=== PATIENT | female | born 1995 | race Caucasian/White ===

== ENCOUNTER 2017-01-22 11:45 | Outpatient (CLI) | payer OTHER | END 2017-01-22 11:46 | disposition home or self-care (01) | DX: Z36 Encounter for antenatal screening of mother (principal) ==

== ENCOUNTER 2017-04-29 07:45 | Outpatient (CLI) | payer OTHER ==
--- NOTE | 2017-04-29 14:44 | Ultrasound Report ---
OBSTETRICAL ULTRASOUND SECOND TRIMESTER FOR EVALUATION OF ANATOMY: 2016 CLINICAL HISTORY: REGIS per doctor's office is 08/24/2017. TECHNIQUE: Real-time scanning was performed with front desk representative static images obtained. LAST MENSTRUAL PERIOD --- Clinical Age --- US Age 22 weeks 5 days EFW Hadlock 555 g EFW% Hadlock --- Heart Rate 150 bpm EDC --- US EDC 08/28/2017 BPD [place] 22 weeks 1 day; Mean mm 53.2 HC [place] 22 weeks 3 days; Mean 203.5 AC [place] 23 weeks 0 days; Mean mm 181.7 FL [place]lock 23 weeks 2 days; Mean mm 40.9 Presentation breech Placental Location anterior Cervical Length 4.0 cm Amniotic Fluid 4.2 cm FINDINGS: A single fetus is noted in breech position. Composite gestational age by ultrasound today is 22.7 weeks. EDC by ultrasound today 08/28. Present gestational age is only 4 days less advanced than expected as compared to expected REGIS reported by doctor's office. This degree of growth is within normal limits. Estimated weight is 555 grams. heart rate is 150 beats per minute and regular. anatomy is within normal limits including head, body, spine, four-chamber view of the heart, cardiac outflow tract, bladder. face appears normal with normal ossification of the nasal bones. lips/ face appears normal. Normal three-vessel umbilical cord is noted. Umbilical cord insertion site in the fetus appears normal. Anterior placenta is noted. Umbilical cord insertion site within the placenta lies within the central aspect of the placenta. Insertion site is normal. Examination is negative for placenta previa. Amniotic fluid volume index is 12.0 cm. Largest pocket of amniotic fluid is 4.2. Amniotic fluid volume index is normal. Maternal cervix measures 4 cm in length. This is within normal limits. Estimated weight today is 555 grams. IMPRESSION: 1. SINGLE FETUS IS NOTED IN BREECH POSITION WITH COMPOSITE GESTATIONAL AGE TODAY BY ULTRASOUND OF 22.7 WEEKS. EDC BY TODAY'S ULTRASOUND IS 08/28/2017. THIS IS 4 DAYS LESS ADVANCED THAN EXPECTED CALCULATED FROM AN EARLIER ULTRASOUND DONE AT PATIENT'S PHYSICIAN'S OFFICE. GROWTH IS WITHIN NORMAL LIMITS. 2. ANATOMY IS WITHIN NORMAL LIMITS. 3. NORMAL ANTERIOR PLACENTA. 4. NORMAL AMNIOTIC FLUID VOLUME INDEX OF 12.0. MTDD
== END 2017-04-29 07:46 | disposition home or self-care (01) ==
LOC: DI 07:45
PROVIDERS: ATTEND Nurse Practitioner Obstetrics & Gynecology
DX: Z36 Encounter for antenatal screening of mother (principal)
CPT/HCPCS: 76811

== ENCOUNTER 2017-05-21 12:59 | Outpatient (CLI) | payer OTHER | END 2017-05-21 13:00 | disposition home or self-care (01) | LOC: LAB.F 12:59 | PROVIDERS: ATTEND Nurse Practitioner Obstetrics & Gynecology | DX: Z36 Encounter for antenatal screening of mother (principal) | CPT/HCPCS: 36415; 82950; 85018; 86850 ==

== ENCOUNTER 2017-07-26 17:49 | Outpatient (CLI) | payer OTHER ==
[2017-07-26 18:02] VITALS: BP 119/74
== END 2017-07-26 18:25 | disposition home or self-care (01) ==
LOC: WFO 17:49 → FBP 17:51 → WFO 18:25
PROVIDERS: ATTEND Registered Nurse
DX: O26.899 Other specified pregnancy related conditions, unspecified trimester (principal); N89.8 Other specified noninflammatory disorders of vagina; Z3A.00 Weeks of gestation of pregnancy not specified
CPT/HCPCS: 99214

== ENCOUNTER 2017-08-04 08:00 | Outpatient (CLI) | payer OTHER | END 2017-08-04 08:01 | LOC: LAB.R 08:00 | PROVIDERS: ATTEND Registered Nurse | DX: Z34.83 Encounter for supervision of other normal pregnancy, third trimester (principal) | CPT/HCPCS: 87081 ==

== ENCOUNTER 2017-08-28 19:55 | Inpatient (IN) | payer OTHER ==
[2017-08-28] MEDS ORDERED: ONDANSETRON 4 MG/2 ML VIAL IVP PRN ×2 (20:24→22:32)
[2017-08-28] MEDS ORDERED: OXYTOCIN/SODIUM CHLORIDE 250 ML IV ONE (20:24)
[2017-08-28] MEDS ORDERED: PENICILLIN G POTASSIUM 5,000,000 UNIT in SODIUM CHLORIDE 0.9% MINIBAG 100 ML IV SCH (20:24)
[2017-08-28] MEDS ORDERED: fentaNYL 100 MCG/2 ML VIAL IVP PRN (20:24)
[2017-08-28] MEDS ORDERED: SODIUM CHLORIDE FLUSH 0.9% 10 ML SYRINGE IVP PRN (20:24)
--- NOTE | 2017-08-28 20:29 | HISTORY & PHYSICAL EXAMINATION ---
Admit History - Instructions [place]/Slash: -Left hand click circles element as positive or present. -Right hand click slashes element as negative or not present. - Visit Reason Visit Reason: Contractions (contractions with onset around 1800, progressively intense over a period of 2 hours, now breathing through them. No LOF. No vaginal bleeding. Good FM.) - : 2 Parity: 1 Premature: 0 Ectopic: 0 : 0 Care: positive: [facility] Risk/History: positive: None Complications This : positive: Other (GBS positive RV culture @ 36 weeks' gestation) Smoking Status: Never smoker - Mother's Labs Mother's Blood Type: positive: AB Mother's RH: positive: Positive GBS: positive: Group B Strep Positive Rubella Status: positive: Immune (Jadyn Hayes is a 22 y/o who presented for care at 8 weeks' gestation w/ a planned . She was dated by her LMP, which was consistent w/ her 1st trimester US. She received consistent care throughout her , without complication, and had a total of 14 visits. She gained 35 pounds during her .) Meds/Allgy - Home Medications Home Medications: Ambulatory Orders Medication Instructions Recorded Confirmed Ondansetron Odt [Zofran] 4 mg TL Q6H PRN #10 tablet 03/12/16 - Allergies Allergies/Adverse Reactions: Allergies Allergy/AdvReac Type Severity Reaction Status Date / Time No Known Drug Allergies Allergy Verified 03/12/16 11:55 Physical - Abdominal Exam Vital Signs: Temp Pulse Resp BP Pulse Ox 36.9 C 96 22 112/68 100 08/28/17 20:14 08/28/17 20:14 08/28/17 20:14 08/28/17 20:14 08/28/17 20:14 Contraction Frequency (min/apart): q 3-4 minutes x 90 seconds Contraction Intensity: positive: Strong Uterine Resting Tone: positive: Soft - Monitoring Heart Rate Baseline: 160 Strip Review: positive: Category I - Presentation Presentation: positive: Vertex - Vaginal Exam Membranes: positive: Membranes intact (BBOW) Dilation (in cm): 6 Effacement (%): 90 Station: positive: 1 Cervical Position: positive: Anterior - Speculum Exam Speculum Exam Performed: positive: No - Other Notes Labor Progress Note/Additional Text: HPI: Jadyn presented in spontaneous active labor w/ onset of uterine contractions at 1800, progressively intense since that time. No LOF/VB. +FM. Desiring IV analgesia & hydrotherapy @ this time. Potentially interested in epidural placement as labor progresses. She is accompanied by her partner, Car, and her mother, both of whom are very involved & supportive. She is expecting a female , whom she has named "ROSENDO" ROS: GEN: no fever, no chills HEENT: no ROGER, no vision changes LUNGS: no SOB, no cough HEART: no palpitations, no CP GI: no N/V/D : no dysuria, no remarkable vaginal d/c OB: + Uterine contractions, 6/10 pain, no LOF/VB, +FM MS: Mild back pain, otherwise no pain, FROM SKIN:No pruritus, no lesion NEURO: No numbness, tingling, weakness PSYCH: Moderate anxiety, discomfort w/ contractions PE: GEN:AAOx3, uncomfortable, mildly panicky gravid female HEENT: grossly normocephalic, atraumatic, PERRLA LUNGS: CTA b/l t/o HEART: RRR nls1s2, no murmur GI: Abd gravid, NT, palpable movement, palpable strong contractions; lie longitudinal, presentation cephalic, EFW 7-7.5# : SVE: 6/+1 BBOW, anterior, soft; mucoid vaginal d/c, no lesions OB: EFM: BL 160bpm, +accels, no decels, mod variability; TOCO: UCs q 3-4 minutes x90 seconds, palpably strong MS: FROM t/o, no edema, no erythema SKIN: C/D/I, warm, well-perfused w/o lesion, +multiple tattoos NEURO: no focal deficit PSYCH: moderate anxiety Assessment: 22 y/o @ 40w5d in active, spontaneous labor @ term, IBOW, GBS +, FHTs cat I, adequate pain control @ present w/ desire for hydrotherapy Plan for Labor - Plan For Labor : expectant Plan for Labor: 1. Admit to [facility] 2. IV insertion & begin IV PCN for GBS prophylaxis per protocol 3. IV fentanyl 100mcg hourly PRN per pt request; hydrotherapy prior or 1-2 hours after, reviewed; reviewed all methods of pain management w/ pt, including timing of epidural & anticipatory guidance, should she elect anesthesia 4. Intermittent auscultation acceptable if she has not received fentanyl, CEFM if she receives opioid analgesia 5. Reassess cervical status x4 hours, earlier PRN 6. Reviewed optimal maternal positioning 7. Reviewed physiology of labor 8. Reviewed plan of care w/ pt, partner, pt's mother & RN @ bedside; all in agreement, without concerns--Dr. Mathew, DO, aware of clinical scenario
[2017-08-28] MEDS ORDERED: LACTATED RINGERS 1,000 ML IV ONE (20:39)
[2017-08-28] MEDS: LACTATED RINGERS 1,000 ML IV SCH ×2 (20:40→23:59)
[2017-08-28] MEDS ORDERED: ACETAMINOPHEN 325 MG TABLET PO SCH (21:00)
[2017-08-28 21:13] LABS: BASOPHILS % (AUTO) 0.5 %; EOSINOPHILS % (AUTO) 0.2 %; HCT - HEMATOCRIT 35.2 % (37.0-47.0); LYMPHOCYTES # (AUTO) 1.3 10^3/uL (1.5-3.5); LYMPHOCYTES % (AUTO) 16.7 %; MEAN CORPUSCULAR HEMOGLOBIN 28.7 pg (27.0-31.0); MEAN CORPUSCULAR HGB CONC 34.2 g/dL (32.0-36.0); MEAN PLATELET VOLUME 10.5 fL (7.9-10.8); MONOCYTES # (AUTO) 0.8 10^3/uL (0.0-1.0); MONOCYTES % (AUTO) 10.1 %; NEUTROPHILS # (AUTO) 5.7 10^3/uL (1.5-6.6); NEUTROPHILS % (AUTO) 72.5 %; RED CELL DISTRIBUTION WIDTH 13.1 % (12.0-15.0); UNCORRECTED WHITE BLOOD COUNT 7.8 x10^3/uL; WHITE BLOOD COUNT 7.8 x10^3/uL (4.8-10.8)
[2017-08-28] MEDS ORDERED: fent/BUPIV 2 MCG/0.125% 250 ML EP ONE (21:40)
--- NOTE | 2017-08-28 21:45 | PROVIDER PROGRESS NOTE ---
Labor Progress Note - Uterine Monitoring Uterine Monitoring Mode: positive: External toco Contraction Frequency (min/apart): 2-3 x80-90 seconds Contraction Intensity: positive: Strong Uterine Resting Tone: positive: Soft - Monitoring Monitor Mode: positive: External ultrasound Heart Rate Baseline: 150 Heart Rate Variability: positive: Moderate (6-25 bmp) Accelerations: positive: Present, 15x15 Decelerations: positive: None Strip Review: positive: Category I - Labor Progress Note Labor Progress Note/Additional Text: S: Pt s/p fentanyl 50mcg IVP, reports decreased discomfort from 10/10 to 6-7/10 w/ uterine contractions, desires epidural placement. Mother & partner present @ the bedside, involved & very supportive. O: VS: HR 98 BP 112/68 RR 20 EFM BL 150bpm + accels, no decels, mod variability TOCO: UCs q2-3 min x80-90 seconds, palpably strong SVE: deferred secondary to no clinical indication A: 22 y/o @ 40w5d by first trimester US c/w LMP in spontaneous active labor GBS positive s/p 1 dose IV PCN for prophylaxis FHTs cat I Inadequate pain control w/ desire for anesthesia P: 1. Epidural placement now 2. Continue GBS prophylaxis w/ IV PCN per protocol 3. Reassess cervical status w/ clinical indication 4. Anticipate
[2017-08-28] MEDS ORDERED: METOCLOPRAMIDE 10 MG/2 ML VIAL IVP PRN (22:32)
[2017-08-28] MEDS ORDERED: ePHEDrine 50 MG/ML VIAL IVP PRN (22:32)
[2017-08-28] MEDS ORDERED: NALOXONE 0.4 MG/ML VIAL IVP PRN (22:32)
[2017-08-28] MEDS ORDERED: NALBUPHINE 20 MG/ML AMP IVP PRN (22:32)
[2017-08-28] MEDS ORDERED: fent/BUPIV 2 MCG/0.125% 250 ML EP PRN (22:32)
[2017-08-28] MEDS ORDERED: LACTATED RINGERS 500 ML IV SCH (22:32)
[2017-08-28] MEDS ORDERED: diphenhydrAMINE INJ 50 MG/ML VIAL IVP PRN (22:32)
[2017-08-29] MEDS ORDERED: PENICILLIN G POTASSIUM 2,500,000 UNIT in SODIUM CHLORIDE 0.9% 100ML 100 ML IV SCH (01:00)
[2017-08-29] MEDS ORDERED: HYDROCORTISONE/PRAMOXINE 10 GM PR PRN (01:11)
[2017-08-29] MEDS ORDERED: WITCH HAZEL/GLYCERIN 1 EACH MED..PAD TOP PRN (01:11)
[2017-08-29] MEDS ORDERED: HYDROCORTISONE 1% CREAM 28 GM TUBE PR PRN (01:11)
[2017-08-29] MEDS ORDERED: MAGNESIUM HYDROXIDE 2,400 MG/30 ML UDC PO PRN (01:11)
[2017-08-29] MEDS ORDERED: OXYTOCIN/SODIUM CHLORIDE 250 ML IV ONE (01:11)
--- NOTE | 2017-08-29 01:23 | DELIVERY NOTE ---
Delivery Note - Labor Labor: positive: Spontaneous - Delivery Method Delivery Method: positive: Spontaneous vaginal delivery - Presentation Presentation: positive: Vertex, ASHLEY - left occiput anterior - Nuchal Cord Nuchal Cord: positive: Present (tight, x1, delivered through) - Anesthetic Anesthetic Type: - Amniotic Fluid Description Amniotic Fluid Description: positive: Clear (SROM for CAF @ 0058 w/ pushing) - Episiotomy Type Episiotomy Type: positive: None - Laceration Laceration: positive: None - Delivery Outcome Delivery Outcome: positive: Livebirth - [place] : positive: Placed in direct skin contact with mother, Stimulated, Warmed , [place] used [place] sex: positive: Female - Cord Cord: positive: 3 vessels - Placenta Placenta: positive: Intact, Spontaneous ([place]) - Estimated Blood Loss Estimated Blood Loss (in cc): 150 - Post Delivery Events Post Delivery Events: positive: No post delivery events - Delivery Comments (Free Text/Narrative) Delivery Comments (Free Text/Narrative): Jadyn Hayes is a 22 y/o [id number] who presented for care in the early 1st trimester & was dated by a concordant 8week ultrasound. She received care regularly & her care was complicated only by GBS + status @ 36-week screening. She began hilario 08/28/2017 @ 1830 & presented to [facility] @ 2030 in spontaneous, active labor @ 40w5d gestation. Jadyn received a single dose of 5,000million units of PCN @ 2100 for GBS prophylaxis. She received fentanyl x1 @ 2118 for discomfort & subsequently received an epidural for anesthesia ( placed @ 5). FHTs were monitored t/o the first stage & were consistently category I. She reported increased persistent pressure s/p straight cath for 800mL clear yellow urine & was found to be complete 08/29/2017 @ 0050, for a total 1st stage duration of 6hours, 20 minutes. She pushed w/ spontaneous urge & experienced SROM for moderate amt CAF @ 0058 w/ expulsive efforts, then subsequently delivered a viable female vaginally over @ intact perineum @ 0059, for a total 2nd stage duration of 9 minutes, 4 of which were spent actively pushing. Tight nuchal cord x1, delivered readily through. Vigorous w/ spontaneous, lusty cry. Placed to maternal abdomen for drying/stim. Delayed cord clamping until cessation of pulsation, then cord clamped x2 by CNM, cut by FOB. 3VC noted, cord blood obtained. Active management of the 3rd stage w/ Pitocin in IV fluids. Placenta delivered spontaneously & intact, [place], w/ trailing membranes that were easily teased free w/ ring forceps @ 0105, for a total 3rd stage duration of 6 minutes. Fundus firm @ U. Vagina & perineum inspected & found to be intact. EBL 150mL. Infant @ breast, nuzzling & rooting w/in 15 minutes of delivery. Mother intends to breastfeed exclusively & has had a previously successful experience. Family present @ the bedside, involved & very supportive. Mother & stable.
[2017-08-29] MEDS: IBUPROFEN 800 MG TABLET PO SCH ×4 (02:07→20:41)
[2017-08-29] MEDS: DOCUSATE SODIUM 100 MG CAPSULE PO SCH ×2 (09:05→20:41)
--- NOTE | 2017-08-29 18:38 | PROVIDER PROGRESS NOTE ---
Subjective - Prog Note Date Prog Note Date: 08/29/17 Prog Note Time: 18:30 - Subjective Pt reports feeling: Improved (Jadyn is doing well. She reports increased discomfort w/ uterine contractions w/ nursing & requests additional analgesia. She is nursing well w/ excellent latch. She reports minimal lochia rubra. She is ambulating & voiding w/o difficulty. She is tolerating po intake. She is hoping to remain until PPD#2.) Objective - Vital Signs/Intake & Output Vital Signs: Vital Signs x48h Temp Pulse Resp BP Pulse Ox 08/29/17 17:20 36.8 C 70 16 102/61 100 08/29/17 12:14 36.4 C L 78 18 105/62 100 Intake & Output: Intake & Output 08/26/17 08/27/17 08/28/17 08/29/17 23:59 23:59 23:59 23:59 Intake Total 1080 1250 Output Total 1800 Balance 1080 -550 - Objective General Appearance: positive: No acute distress, Alert Eyes Bilateral: positive: Normal inspection, PERRL, EOMI ENT: positive: ENT inspection nml Respiratory: positive: Chest non-tender, No respiratory distress, Breath sounds nml Cardiovascular: positive: Regular rate & rhythm, No murmur, No gallop Abdomen: positive: Non-tender, No organomegaly, No distention, Other (FF U-1) Skin: positive: Color nml, No rash, Warm, Dry Extremities: positive: Non-tender, Full ROM, Nml appearance, No pedal edema. negative: Calf tenderness, Vilma's sign/cords Neurologic/Psychiatric: positive: Oriented x3, CN's nml (2-12), Motor nml, Sensation nml, Mood/affect nml Comments/Other: Breasts b/l s, nt; nipples b/l intact & everted; colostrum readily expressed Perineum intact w/o ecchymosis/erythema/edema; minimal lochia rubra - Lab Results Fish Bones: 08/28/17 20:50 Other Labs: Lab Results x24hrs 08/28/17 Range/Units 20:50 WBC 7.8 (4.8-10.8) x10^3/uL RBC 4.20 (4.20-5.40) 10^6/uL Hgb 12.0 (12.0-16.0) g/dL Hct 35.2 L (37.0-47.0) % MCV 84.0 (81.0-99.0) fL MCH 28.7 (27.0-31.0) pg MCHC 34.2 (32.0-36.0) g/dL RDW 13.1 (12.0-15.0) % Plt Count 139 (130-450) 10^3/uL MPV 10.5 (7.9-10.8) fL Neut # 5.7 (1.5-6.6) 10^3/uL Lymph # 1.3 L (1.5-3.5) 10^3/uL [place] # 0.8 (0.0-1.0) 10^3/uL Eos # 0.0 (0.0-0.7) 10^3/uL Baso # 0.0 (0.0-0.1) 10^3/uL Absolute Nucleated RBC 0.00 x10^3/uL Nucleated RBC % 0.0 /100WBC Assessment/Plan - Problem List (1) (normal spontaneous vaginal delivery) Impression: PPD#0 s/p w/o laceration Inadequate pain control w/ non-opioid analgesia well Normal uterine involution P: 1. add 5mg oxycodone q 4hrs PRN severe pain 2. Reviewed appropriate use of opioid analgesia 3. support provided & to continue in ongoing fashion 4. Continue routine care 5. Anticipate d/c PPD#2
[2017-08-29] MEDS: oxyCODONE 5 MG TABLET PO PRN (18:46)
[2017-08-30] MEDS: IBUPROFEN 800 MG TABLET PO SCH ×4 (04:16→22:55)
[2017-08-30] MEDS: DOCUSATE SODIUM 100 MG CAPSULE PO SCH ×2 (08:27→22:55)
[2017-08-30] MEDS: SODIUM CHLORIDE FLUSH 0.9% 10 ML SYRINGE IVP SCH ×3 (08:42→08:44)
[2017-08-30] MEDS: LACTATED RINGERS 1,000 ML IV SCH ×3 (08:43→08:45)
[2017-08-30] MEDS: oxyCODONE 5 MG TABLET PO PRN (17:23)
--- NOTE | 2017-08-30 17:26 | PROVIDER PROGRESS NOTE ---
Subjective - Prog Note Date Prog Note Date: 08/30/17 Prog Note Time: 17:00 - Subjective Pt reports feeling: Improved Subjective: Jadyn is doing well, although she is very tired. Her infant clusterfed for most of the night & she did not get much sleep. is going well & she denies pain apart from uterine cramping w/ nursing. She has minimal lochia rubra. She is ambulating & voiding w/o difficulty & is tolerating po intake. She is undecided regarding pp contraception & will not be returning to work. Her family & partner are present @ the bedside & are involved & very supportive. she expresses interest in taking a bath. Objective - Vital Signs/Intake & Output Reviewed Vital Signs: Yes Vital Signs: Vital Signs x48h Temp Pulse Resp BP Pulse Ox 08/30/17 16:07 36.6 C 85 16 100/52 L 99 Intake & Output: Intake & Output 08/27/17 08/28/17 08/29/17 08/30/17 23:59 23:59 23:59 23:59 Intake Total 1080 2250 Output Total 1800 Balance 1080 450 - Objective General Appearance: positive: No acute distress, Alert Eyes Bilateral: positive: Normal inspection, PERRL, EOMI ENT: positive: ENT inspection nml Respiratory: positive: Chest non-tender, No respiratory distress, Breath sounds nml Cardiovascular: positive: Regular rate & rhythm, No murmur, No gallop Abdomen: positive: Non-tender, No organomegaly, Nml bowel sounds, Other (FFU-2) Skin: positive: Color nml, No rash, Warm, Dry Extremities: positive: Non-tender, Full ROM, Nml appearance, No pedal edema. negative: Calf tenderness, Vilma's sign/cords Neurologic/Psychiatric: positive: Oriented x3, CN's nml (2-12), Motor nml, Sensation nml, Mood/affect nml Comments/Other: breasts b/l s, nt; nipples b/l intact & everted, colostrum readily expressed perineum intact, no erythema/edema/ecchymosis; minimal lochia rubra - Lab Results Fish Bones: 08/28/17 20:50 Assessment/Plan - Problem List (1) (normal spontaneous vaginal delivery) Impression: Normal uterine involution Adequate pain control w/ isolated dose of opioid analgesia, none x24 hours Minimal lochia rubra well P: 1. reviewed physiology of & support provided 2. reviewed precautions for prevention of infection & recommended no immersion in bathtub; may use sitz bath as desired 3. routine care 4. reviewed pain management recommendations, will d/c w/o opioid analgesia 5. Anticipate d/c PPD#2
[2017-08-31] MEDS: IBUPROFEN 800 MG TABLET PO SCH ×2 (05:17→11:16)
[2017-08-31] MEDS: DOCUSATE SODIUM 100 MG CAPSULE PO SCH (09:05)
[2017-08-31 09:14] VITALS: BP 109/68
--- NOTE | 2017-08-31 10:08 | Discharge Plan ---
Discharge Plan Disposition: 01 Home, Self Care Condition: Good Diet: Regular Activity Restrictions: pelvic rest x6 weeks Shower Restrictions: No (Do not immerse in bath of water; may utilize sitz bath. ) Driving Restrictions: No Weight Bearing: Full Weight Instruction Topics: Breastfeed How To, Vaginal After, Exercises Kegel, Jaundice Signs Inf Additional Instructions or Follow Up instructions: Follow up in 2 weeks with Sagar Moses CNM, ARNP; call as needed for an earlier appointment: [phone] No Smoking: If you smoke, Please STOP! Call for help. Follow-up with: Sagar Moses CNM, ARNP [Provider Admit Priv/Credential] - Nilam Hughes PA [Primary Care Provider] -
--- NOTE | 2017-08-31 10:15 | DISCHARGE SUMMARY ---
"Discharge Summary Admit Date: 08/28/17 Discharge Date: 08/31/17 Discharging Provider: CLEMENTINE Code Status: Attempt Resuscitation Condition at Discharge: Good Discharge Disposition: 01 Home, Self Care Discharge Facility Name: [facility] - DIAGNOSES Admission Diagnoses: TERM @ 40 WEEKS' GESTATION GBS POSITIVE SPONTANEOUS, ACTIVE LABOR Discharge Diagnoses with Status of Each Condition: EPIDURAL PLACEMENT - HPI History of Present Illness: Jadyn Hayes is a 22 y/o [id number] who was admitted at 40w5d in active, spontaneous labor. She progressed spontaneously & received an epidural for anesthesia per her request. She received a single dose of IV PCN for IPAP, and experienced SROM during the 2nd stage 1 minute prior to of viable female in ASHLEY position over an intact perineum. Her EBL was 150mL. She was effectively w/in an hour s/p delivery. - CONSULTS | PROCEDURES Procedures: Epidural placement - HOSPITAL COURSE Hospital Course: , she is ambulating & voiding w/o difficulty. Her pain is well- controlled now w/o opioid analgesia. She is tolerating a regular diet & passing flatus. She has not yet had a bowel movement. She is well w/ excellent latch. She denies a hx of pp depression. She has excellent social support. She does not plan to return to work. She is undecided regarding pp contraception. She is able to fully articulate pp warning s/sx, including pp depression s/sx, and pp aftercare instructions. She is ready to leave the hospital. - ALLERGIES Allergies/Adverse Reactions: Allergies Allergy/AdvReac Type Severity Reaction Status Date / Time No Known Drug Allergies Allergy Verified 03/12/16 11:55 - MEDICATIONS Home Medications Other | Comments: Over the counter ibuprofen 600mg q 6 hours PRN pain Over the counter acetaminophen 650mg q 6 hours PRN pain Over the counter docusate sodium 100mg po BID PRN constipation - PHYSICAL EXAM AT DISCHARGE General Appearance: positive: No acute distress, Alert Eyes Bilateral: positive: Normal inspection, PERRL, EOMI ENT: positive: ENT inspection nml Respiratory: positive: Chest non-tender, No respiratory distress, Breath sounds nml Cardiovascular: positive: Regular rate & rhythm, No murmur, No gallop Abdomen: positive: Non-tender, No organomegaly, No distention, Other (FF @ U-2) Skin: positive: Color nml, No rash, Warm, Dry Extremities: positive: Non-tender, Full ROM, Nml appearance, No pedal edema. negative: Calf tenderness, Vilma's sign/cords Neurologic/Psychiatric: positive: Oriented x3, CN's nml (2-12), Motor nml, Sensation nml, Mood/affect nml Physical Exam Other/Comments: Breasts b/l filling, NT; nipples b/l intact & everted Perineum intact w/o erythema/edema/ecchymosis; minimal lochia rubra - LABS Result Diagrams: 08/28/17 20:50 - FOLLOW UP Follow Up: x2 weeks in outpatient clinic w/ Sagar Moses CNM, AV[place], earlier PRN"
[2017-08-31] MEDS: SODIUM CHLORIDE FLUSH 0.9% 10 ML SYRINGE IVP SCH ×2 (12:08→12:09)
[2017-08-31] MEDS: LACTATED RINGERS 1,000 ML IV SCH (12:09)
--- NOTE | 2017-08-31 12:53 | Labor Flowsheet ---
Labor Flowsheet Datetime Report Generated by CPN: 08/31/2017 12:53 Datetime: 08/31/2017 09:08 VITAL SIGNS NBP Sys/Marianne/Mean (mmHg): 109 : 68 : 78 Pulse: 81 Datetime: 08/29/2017 12:14 SpO2 (%): 100 Datetime: 08/29/2017 01:05 MEDICATIONS Pitocin (milliunits): Started @ Datetime: 08/29/2017 01:04 STAGE 2 Stage 2 Comments: placenta spont expelled Datetime: 08/29/2017 01:00 Stage of : PAIN Pain Scale: 0 Pain Presence: None/Denies Pain Type: N/A Pain Goal: 4 Pain Relief Measures: Epidural Given Anesthesia Level Check: T6- Xyphoid Datetime: 08/29/2017 00:59 ASSESSMENT B Comments: of viable female LaborFlag: Labor Datetime: 08/29/2017 00:58 Membrane Status: Ruptured Membranes Rupture Method: Spontaneous Amniotic Fluid Color: Clear Amniotic Fluid Amount: Moderate Amniotic Fluid Odor: Normal Datetime: 08/29/2017 00:52 VAGINAL EXAM Dilatation (cm): 10.0 Effacement (%): 100 Station: 4 Exam by: CNConner Moses Datetime: 08/29/2017 00:50 UTERINE ACTIVITY Monitor Mode: External Frequency (min): 1.5-3 Quality: Strong Duration (sec): 50-100 Pattern: Normal: <= 5 Contractions in 10 Minutes Resting Tone (Palpate): Relaxed ASSESSMENT A Monitor Mode: External US FHR Baseline Rate : 150 FHR Baseline Changes: No Baseline Change Variability: Moderate 6-25 bpm Accelerations: occas with movement Decelerations: Variable Actions for Decelerations: continue to observe closely; intervene with position change Category: Category II Datetime: 08/29/2017 00:36 I/O Interventions: Straight Cath (ml) @ 800 Datetime: 08/29/2017 00:30 Patient Care Comments: unable to void on bedpan; legs too numb for BSC Datetime: 08/29/2017 00:13 Patient Position/Activity: Left Lateral Datetime: 08/29/2017 00:00 PATIENT CARE IV/Blood Work: New IV Bag Hung Datetime: 08/28/2017 23:56 Oxygen Method: Room Air Datetime: 08/28/2017 23:00 Respirations: 18 Pain Coping: Breathing Through Contractions Datetime: 08/28/2017 22:19 Breath Sounds, Left: Clear and Equal Breath Sounds, Right: Clear and Equal Datetime: 08/28/2017 22:02 Temperature (C): 36.8 Temperature Route: Oral Datetime: 08/28/2017 21:55 Epidural Procedure: Loading Dose Datetime: 08/28/2017 21:52 Anesthesia Comments: test dose negative Datetime: 08/28/2017 21:40 Epidural Positioning: Sitting Datetime: 08/28/2017 21:38 PROCEDURE TIME OUT Procedure Type: [id number] Procedure Verify: Correct Patient Identity; Correct Side and Site are Marked; Accurate Procedure Co nsent Form; Agreement on Procedure to be Done; Correct Patient Position; Addressed Need to Administer Antibiotics or Fluids for Irrigation; Safety Precautions Based on Patient History or Medication Use ANESTHESIA Anesthesia Plans: Epidural Datetime: 08/28/2017 21:31 COMMUNICATION Communication: Provider at Bedside Provider Notified (Name): FRONT OFFICE ADMINISTRATOR [place] Notification Reason: Status Update; Uterine Activity; Pain Datetime: 08/28/2017 21:30 Pain Location: Abdomen; Back TEACHING Instructional Method: Verbal; Written; Family/Support Person Instructed; Verbalized Understanding Plan of Care: Plan of Care Discussed; Labor Unit Routine: [place] to Room; Call Alejo; Bed; Visiting Policy; Waiting Areas; Phone/Cell Phone Use; Handwashing; Monitoring; IV Pumps; Safety/Fall Risk Prevention; Bathroom Privileges; Routine T alejandro Outs; Medications Pain Management: Epidural; Pain Scale/Goals; Comfort Measures Datetime: 08/28/2017 21:21 Provider Reviewed Strip: No Communication Comments: pt requesting epidural Datetime: 08/28/2017:18 Analgesics/Sedatives: Fentanyl (mcg) @ 50 Datetime: 08/28/2017 21:08 Antibiotics: Penicillin IV (Units) @ (Annotations: 5M units IVBP) Datetime: 08/28/2017 21:01 MATERNAL ASSESSMENT Level of Consciousness: Fully Conscious Headache: Denies Nausea/Vomiting: Present RUQ Epigastric Pain: Denies
== END 2017-08-31 12:45 | disposition home or self-care (01) | DRG 775 ==
LOC: WFO 19:55 → FBP 19:56 → WFO 20:23 → FBP 20:24
PROVIDERS: ADMIT Registered Nurse; ATTEND Registered Nurse
PROC: 10E0XZZ Delivery of Products of Conception, External Approach (ICD-10-PCS; principal; 2017-08-29)
DX: O99.824 Streptococcus B carrier state complicating childbirth (principal); O69.81X0 Labor and delivery complicated by cord around neck, without compression, not applicable or unspecified; Z3A.40 40 weeks gestation of pregnancy; Z37.0 Single live birth
CPT/HCPCS: 85025; 99213

== ENCOUNTER 2019-05-27 16:33 | Outpatient (CLI) | payer SELFPAY ==
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
== END 2019-05-27 16:34 | disposition home or self-care (01) ==
LOC: DI 16:33
PROVIDERS: ATTEND Nurse Practitioner Family
DX: M79.631 Pain in right forearm (principal)

== ENCOUNTER 2019-05-28 14:55 | Outpatient (CLI) | payer SELFPAY ==
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
== END 2019-05-28 14:56 | disposition home or self-care (01) ==
LOC: DI.S 14:55
PROVIDERS: ATTEND Nurse Practitioner Family
DX: M25.531 Pain in right wrist (principal)

== ENCOUNTER 2019-06-03 11:51 | Outpatient (CLI) | payer OTHER ==
--- NOTE | 2019-06-04 10:31 | CT Report ---
Reason: PAIN OF RIGHT FOREARM Procedure Date: 06/03/2019 Accession Number: [id number] / [id number] Procedure: CT - UPPER EXTREMITY WO - RT CPT Code: FULL RESULT: EXAM: RIGHT FOREARM CT WITHOUT CONTRAST EXAM DATE: 06/03/2019 12:30 PM. CLINICAL HISTORY: PAIN OF RIGHT FOREARM. COMPARISON: FOREARM RT 05/27/2019 4:54 PM WRIST 3 VIEW RT 05/28/2019 3:24 PM. TECHNIQUE: Thin-section axial images were acquired of the forearm without contrast. Post-processing: Coronal and sagittal reformats. Other: None. In accordance with CT protocol optimization, one or more of the following dose reduction techniques were utilized for this exam: automated exposure control, adjustment of mA and/or KV based on patient size, or use of iterative reconstructive technique. FINDINGS: Bones: No fracture or bone lesion. Joints: Normal carpal alignment. No significant wrist or elbow joint effusions. No significant arthritic change. Musculature: Normal. No fatty atrophy. Other: None. IMPRESSION: Normal forearm CT. RADIA
== END 2019-06-03 11:52 | disposition home or self-care (01) ==
LOC: DI 11:51
PROVIDERS: ATTEND Nurse Practitioner Family
DX: M79.631 Pain in right forearm (principal)

== ENCOUNTER 2020-07-25 13:43 | Emergency (ER) | payer OTHER ==
[2020-07-25 13:52] VITALS: BP 118/76
== END 2020-07-25 14:05 | disposition left against medical advice (07) ==
LOC: ED 13:43
DX: Z53.21 Procedure and treatment not carried out due to patient leaving prior to being seen by health care provider (principal)

== ENCOUNTER 2021-06-13 07:00 | Outpatient (CLI) | payer OTHER ==
[2021-06-13 15:49] LABS: BASOPHILS % (AUTO) 0.7 %; EOSINOPHILS % (AUTO) 0.2 %; HCT - HEMATOCRIT 39.9 % (37.0-47.0); HGB - HEMOGLOBIN 13.3 g/dL (12.0-16.0); LYMPHOCYTES # (AUTO) 1.6 10^3/uL (1.5-3.5); LYMPHOCYTES % (AUTO) 25.8 %; MEAN CORPUSCULAR HEMOGLOBIN 30.1 pg (27.0-31.0); MEAN CORPUSCULAR HGB CONC 33.3 g/dL (32.0-36.0); MEAN CORPUSCULAR VOLUME 90.3 fL (81.0-99.0); MONOCYTES # (AUTO) 0.6 10^3/uL (0.0-1.0); NEUTROPHILS # (AUTO) 3.9 10^3/uL (1.5-6.6); NEUTROPHILS % (AUTO) 64.1 %; PLT - PLATELET COUNT 199 10^3/uL (130-450); RED BLOOD COUNT 4.42 10^6/uL (4.20-5.40); RED CELL DISTRIBUTION WIDTH 12.1 % (12.0-15.0); WHITE BLOOD COUNT 6.1 x10^3/uL (4.8-10.8)
[2021-06-13 16:04] LABS: ALBUMIN 4.8 g/dL (3.2-5.5); ALBUMIN/GLOBULIN RATIO 1.9 (1.0-2.2); BILIRUBIN,TOTAL 0.5 mg/dL (0.2-1.0); CALCIUM 9.3 mg/dL (8.5-10.3); CREATININE 0.7 mg/dL (0.4-1.0); POTASSIUM 3.7 mmol/L (3.5-5.0); TOTAL PROTEIN 7.3 g/dL (6.7-8.2)
[2021-06-18 02:36] LABS: NIL 0.03 IU/mL
== END 2021-06-13 23:59 | disposition home or self-care (01) ==
LOC: LAB 07:00
PROVIDERS: ATTEND Nurse Practitioner Family
DX: R10.12 Left upper quadrant pain (principal); Z11.1 Encounter for screening for respiratory tuberculosis
CPT/HCPCS: 36415; 80053; 82150; 83690; 85025; 86480

== ENCOUNTER 2022-07-25 14:25 | Outpatient (CLI) | payer OTHER ==
--- NOTE | 2022-07-25 17:32 | Ultrasound Report ---
PROCEDURE: OB Detailed Eval INDICATIONS: SUPERVISION OF OUTSIDE/PRIOR DATING DATA: Last menstrual period (LMP): Unknown. LMP-based estimated date of delivery (REGIS): 11/25/2022 by conception. First dating scan (date and location): 05/17/2022. Dr. Parada Estimated date of delivery (REGIS) from first dating scan: 12/03/2022. The below data below was generated using the ultrasound REGIS of 12/03/2022 TECHNIQUE: Real-time scanning was performed of the fetus, with image documentation and biometric measurements. COMPARISON: None. FINDINGS: General: A single living intrauterine gestation is present. Presentation: Breech Placenta: Placental position is anterior, without previa. Amniotic fluid index: 15.8 cm, normal for gestational age. Largest pocket 4.7 cm. heart rate: 147 beats per minute. Maternal cervical canal: 4 cm long; normal length is 2.5 cm or more. biometrics: Biparietal diameter: 4.68 cm, 20 weeks 1 day Head circumference: 18.9 cm, 21 weeks 2 days Abdominal circumference: 17.0 cm, 22 weeks 0 days Femur length: 3.51 cm, 21 weeks 1 day Estimated gestational age from initial scan: 21 weeks 2 days Composite gestational age from present scan: 21 weeks 2 days Estimated weight and percentile: 427 grams, 55th percentile Measurement variability in biometric dating: +/- 10 days from 12-20 weeks gestation, +/- 2 weeks from 20-30 weeks gestation, +/- 3 weeks at 30 weeks gestation or later. Anatomic survey: Neuro: Ventricles are normal at less than 10 mm. Cisterna magna is normal at 3-11 mm. Cerebellum i s normal in size and morphology. Nuchal skin fold: Normal at less than 6 mm between 14 and 20 weeks gestational age. Face: Nose and lips, facial profile are normal. Spine: No evidence for spina bifida. Heart: 4-chambered heart is present, with normal ventricular outflow tracts. Diaphragm: Diaphragm is intact. Stomach: Left-sided stomach is present. Kidneys: No hydronephrosis. Normal is less than 5 mm in 2nd trimester, less than 7 mm in 3rd trimester. Cord: 3 vessel cord has orthotopic insertion. Bladder: Normal in size. Extremities: All 4 extremities are visualized. IMPRESSION: 1. Parra living intrauterine at 21 weeks 2 days based on today's ultrasound. This is co ncordant with the first trimester ultrasound. There is expected interval growth. 2. Normal placenta and amniotic fluid. 3. Normal and complete anatomic survey. Reviewed by: Jose Pickett MD on 07/25/2022 5:31 PM PDT Approved by: Jose Pickett MD on 07/25/2022 5:31 PM PDT Station ID: [id number]
== END 2022-07-25 14:26 | disposition home or self-care (01) ==
LOC: DI 14:25
PROVIDERS: ATTEND Nurse Practitioner Obstetrics & Gynecology
DX: Z34.02 Encounter for supervision of normal first pregnancy, second trimester (principal); Z36.89 Encounter for other specified antenatal screening

== ENCOUNTER 2022-08-09 12:24 | Outpatient (CLI) | payer OTHER ==
--- NOTE | 2022-08-09 15:55 | Ultrasound Report ---
PROCEDURE: Ext Limited Non Vascular INDICATIONS: MASS OF UPPER LIMB TECHNIQUE: Real-time scanning was performed of the left upper arm, with image documentation. COMPARISON: None. FINDINGS: Focused ultrasound examination of proximal left upper arm/shoulder soft tissue at patient's reported area of palpable mass shows circular hypoechoic structure with internal debris and posterior acoustic enhancement measures 1.1 x 1.1 x 0.9 cm in size. No internal vascularity is seen. IMPRESSION: Finding may represent a complex cyst within superficial left shoulder/proximal upper arm soft tissue. Clinical and sonographic follow-up is recommended. Reviewed by: Mina Wayne MD on 08/09/2022 3:54 PM PDT Approved by: Mina Wayne MD on 08/09/2022 3:54 PM PDT Station ID: [id number]
== END 2022-08-09 12:25 | disposition home or self-care (01) ==
LOC: DI 12:24
PROVIDERS: ATTEND Nurse Practitioner Family
DX: R22.32 Localized swelling, mass and lump, left upper limb (principal)

== ENCOUNTER 2022-09-03 10:58 | Outpatient (CLI) | payer OTHER ==
[2022-09-03 14:44] LABS: BASOPHILS % (AUTO) 0.3 %; EOSINOPHILS % (AUTO) 0.3 %; HCT - HEMATOCRIT 34.7 % (37.0-47.0); HGB - HEMOGLOBIN 11.3 g/dL (12.0-16.0); MEAN CORPUSCULAR HEMOGLOBIN 29.4 pg (27.0-31.0); MEAN CORPUSCULAR HGB CONC 32.6 g/dL (32.0-36.0); MEAN CORPUSCULAR VOLUME 90.1 fL (81.0-99.0); MEAN PLATELET VOLUME 12.1 fL (7.9-10.8); MONOCYTES # (AUTO) 0.5 10^3/uL (0.0-1.0); MONOCYTES % (AUTO) 6.9 %; NEUTROPHILS # (AUTO) 5.6 10^3/uL (1.5-6.6); NEUTROPHILS % (AUTO) 78.1 %; PLT - PLATELET COUNT 191 10^3/uL (130-450); RED BLOOD COUNT 3.85 10^6/uL (4.20-5.40); RED CELL DISTRIBUTION WIDTH 12.3 % (12.0-15.0); WHITE BLOOD COUNT 7.1 x10^3/uL (4.8-10.8)
== END 2022-09-03 10:59 | disposition home or self-care (01) ==
LOC: LAB.S 10:58
PROVIDERS: ATTEND Nurse Practitioner Obstetrics & Gynecology
DX: Z36.9 Encounter for antenatal screening, unspecified (principal)
CPT/HCPCS: 36415; 82950; 85025

== ENCOUNTER 2022-10-22 14:40 | Outpatient (CLI) | payer OTHER ==
[2022-10-22 20:29] LABS: HCT - HEMATOCRIT 34.3 % (37.0-47.0); HGB - HEMOGLOBIN 10.8 g/dL (12.0-16.0); MEAN CORPUSCULAR HEMOGLOBIN 27.6 pg (27.0-31.0); MEAN CORPUSCULAR HGB CONC 31.5 g/dL (32.0-36.0); MEAN CORPUSCULAR VOLUME 87.5 fL (81.0-99.0); MEAN PLATELET VOLUME 12.8 fL (7.9-10.8); RED BLOOD COUNT 3.92 10^6/uL (4.20-5.40); RED CELL DISTRIBUTION WIDTH 12.6 % (12.0-15.0); WHITE BLOOD COUNT 8.2 x10^3/uL (4.8-10.8)
== END 2022-10-22 14:41 | disposition home or self-care (01) ==
LOC: LAB.S 14:40
PROVIDERS: ATTEND Nurse Practitioner Obstetrics & Gynecology
DX: D64.9 Anemia, unspecified (principal)
CPT/HCPCS: 36415; 85027

== ENCOUNTER 2022-11-21 10:30 | Outpatient (CLI) | payer OTHER | END 2022-11-21 10:31 | disposition home or self-care (01) | LOC: DI 10:30 | PROVIDERS: ATTEND Nurse Practitioner Obstetrics & Gynecology | DX: O99.891 Other specified diseases and conditions complicating pregnancy (principal); R00.0 Tachycardia, unspecified; R06.02 Shortness of breath; R00.2 Palpitations | CPT/HCPCS: 93306 ==

== ENCOUNTER 2022-11-29 23:45 | Inpatient (IN) | payer OTHER ==
[2022-11-30] MEDS ORDERED: TERBUTALINE 1 MG/ML VIAL SUBQ PRN (00:24)
[2022-11-30] MEDS ORDERED: ONDANSETRON 4 MG/2 ML VIAL IVP PRN ×2 (00:24→02:20)
[2022-11-30] MEDS ORDERED: miSOPROStoL 200 MCG TABLET PR PRN (00:24)
[2022-11-30] MEDS ORDERED: hydrALAZINE INJ 20 MG/ML VIAL IVP PRN ×2 (00:24)
[2022-11-30] MEDS ORDERED: OXYTOCIN/SODIUM CHLORIDE 500 ML IV PRN (00:24)
[2022-11-30] MEDS ORDERED: METHYLERGONOVINE 0.2 MG/ML VIAL IM PRN (00:24)
[2022-11-30] MEDS ORDERED: NIFEdipine 10 MG CAPSULE PO PRN (00:24)
[2022-11-30] MEDS ORDERED: LABETALOL 20 MG/4 ML SYRINGE IVP PRN ×3 (00:24)
[2022-11-30] MEDS ORDERED: lidocaine 1% 20 ML MDV ID PRN (00:24)
[2022-11-30] MEDS ORDERED: CARBOPROST TROMETHAMINE 250 MCG/ML AMP IM PRN (00:24)
[2022-11-30] MEDS ORDERED: OXYTOCIN 10 UNIT/ML VIAL IM PRN (00:24)
[2022-11-30] MEDS ORDERED: SODIUM CHLORIDE FLUSH 0.9% 10 ML SYRINGE IVP PRN (00:24)
[2022-11-30] MEDS ORDERED: miSOPROStoL 200 MCG TABLET BC PRN (00:24)
[2022-11-30] MEDS ORDERED: TRANEXAMIC ACID IN NACL 1,000 MG/100 ML BAG IV PRN (00:24)
[2022-11-30 00:56] LABS: BASOPHILS # (AUTO) 0.1 10^3/uL (0.0-0.1); BASOPHILS % (AUTO) 0.4 %; EOSINOPHILS # (AUTO) 0.1 10^3/uL (0.0-0.7); EOSINOPHILS % (AUTO) 0.6 %; HCT - HEMATOCRIT 41.2 % (37.0-47.0); HGB - HEMOGLOBIN 13.3 g/dL (12.0-16.0); LYMPHOCYTES # (AUTO) 1.4 10^3/uL (1.5-3.5); LYMPHOCYTES % (AUTO) 12.6 %; MEAN CORPUSCULAR HEMOGLOBIN 27.5 pg (27.0-31.0); MEAN CORPUSCULAR HGB CONC 32.3 g/dL (32.0-36.0); MEAN CORPUSCULAR VOLUME 85.3 fL (81.0-99.0); MEAN PLATELET VOLUME 12.1 fL (7.9-10.8); MONOCYTES # (AUTO) 0.7 10^3/uL (0.0-1.0); NEUTROPHILS # (AUTO) 9.1 10^3/uL (1.5-6.6); PLT - PLATELET COUNT 161 10^3/uL (130-450); RED BLOOD COUNT 4.83 10^6/uL (4.20-5.40); RED CELL DISTRIBUTION WIDTH 15.9 % (12.0-15.0); WHITE BLOOD COUNT 11.4 x10^3/uL (4.8-10.8)
[2022-11-30] MEDS: LACTATED RINGERS 1,000 ML IV SCH ×2 (00:59→05:55)
[2022-11-30] MEDS ORDERED: ROPIVACAINE 0.2% 200 MG/100 ML BAG EP ONE (01:11)
[2022-11-30] MEDS ORDERED: ePHEDrine 50 MG/ML VIAL IVP PRN (02:20)
[2022-11-30] MEDS ORDERED: NALBUPHINE 10 MG/ML AMP IVP PRN (02:20)
[2022-11-30] MEDS ORDERED: ROPIVACAINE 0.2% 200 MG/100 ML BAG EP PRN (02:20)
[2022-11-30] MEDS ORDERED: NALOXONE 0.4 MG/ML VIAL IVP PRN (02:20)
[2022-11-30] MEDS ORDERED: diphenhydrAMINE INJ 50 MG/ML VIAL IVP PRN (02:20)
[2022-11-30] MEDS ORDERED: METOCLOPRAMIDE 10 MG/2 ML VIAL IVP PRN (02:20)
--- NOTE | 2022-11-30 02:24 | ANESTHESIA ---
Pre-Anesthesia VS, & Labs - Diagnosis active labor - Procedure epidural Vital Signs: Temp Pulse Resp BP Pulse Ox O2 Flow Rate 36.8 C 101 H 20 132/84 H 11/29/22 23:59 11/29/22 23:59 11/29/22 23:59 11/29/22 23:59 Height: 5 ft 4 in Weight (kg): 69.4 kg Body Mass Index: 26.2 BMI Classification: Overweight - NPO >8 hours - Is Patient ?: Yes - Lab Results Current Lab Results: Laboratory Tests 11/30/22 00:45: WBC 11.4 H, RBC 4.83, Hgb 13.3, Hct 41.2, MCV 85.3, MCH 27.5, M CHC 32.3, RDW 15.9 H, Plt Count 161, MPV 12.1 H, Neut # (Auto) 9.1 H, Lymph # (Auto) 1.4 L, Frederick # (Auto) 0.7, Eos # (Auto) 0.1, Baso # (Auto) 0.1, Absolute Nucleated RBC 0.00, Nucleated RBC % 0.0 11/30/22 00:45: Blood Type AB POSITIVE, Antibody Screen NEGATIVE Fish Bones: 11/30/22 00:45 Home Medications and Allergies Active Medications Carboprost Tromethamine (Carboprost Tromethamine 250 Mcg/Ml Amp) 250 mcg IM .ONCE PRN PRN Reason: Hemorrhage Hydralazine HCl (Hydralazine Inj 20 Mg/Ml Vial) 5 - 10 mg IVP Q20M PRN; Protocol PRN Reason: SBP> or= 160 OR DBP> or= 110 Hydralazine HCl (Hydralazine Inj 20 Mg/Ml Vial) 10 mg IVP .ONCE PRN; Protocol PRN Reason: SBP> or= 160 OR DBP> or= 110 Oxytocin/Sodium Chloride (Pitocin/Sodium Chloride) 500 mls @ 999 mls/hr IV PRN PRN; Protocol PRN Reason: POST- HEMORR PREVENTION Tranexamic Acid (Tranexamic 1,000 Mg/100ml-Nacl) 1,000 mg in 100 mls @ 600 mls/hr IV Q30M PRN PRN Reason: EBL >1200mL and within 3hr Lactated Ringer's (Lr) 1,000 mls @ 125 mls/hr IV .Q8H AGUILA Last Admin: 11/30/22 00:59 Dose: 125 mls/hr Labetalol HCl (Labetalol 20 Mg/4 Ml Syringe) 20 - 80 mg IVP Q10M PRN; Protocol PRN Reason: SBP> or= 160 OR DBP> or= 110 Labetalol HCl (Labetalol 20 Mg/4 Ml Syringe) 20 mg IVP .ONCE PRN; Protocol PRN Reason: SBP> or= 160 OR DBP> or= 110 Labetalol HCl (Labetalol 20 Mg/4 Ml Syringe) 20 - 40 mg IVP Q10M PRN; Protocol PRN Reason: SBP> or= 160 OR DBP> or= 110 Lidocaine HCl (Lidocaine 1% 20 Ml Mdv) 20 ml ID .ONCE PRN PRN Reason: PERINEAL REPAIR Stop: 12/03/22 00:25 Methylergonovine Maleate (Methylergonovine 0.2 Mg/Ml Vial) 0.2 mg IM .ONCE PRN PRN Reason: Hemorrhage Misoprostol (Misoprostol 200 Mcg Tablet) 800 mcg MI .ONCE PRN PRN Reason: Hemorrhage Misoprostol (Misoprostol 200 Mcg Tablet) 800 mcg BC .ONCE PRN PRN Reason: Hemorrhage Nifedipine (Nifedipine 10 Mg Capsule) 10 - 20 mg PO Q20M PRN; Protocol PRN Reason: SBP> or= 160 OR DBP> or= 110 Ondansetron HCl (Ondansetron 4 Mg/2 Ml Vial) 4 mg IVP PRN PRN PRN Reason: Nausea / Vomiting Oxytocin (Oxytocin 10 Unit/Ml Vial) 10 unit IM .ONCE PRN PRN Reason: Step One if no IV access. Sodium Chloride (Sodium Chloride Flush 0.9% 10 Ml Syringe) 10 ml IVP PRN PRN PRN Reason: NEEDED PER PROVIDER ORDERS Terbutaline Sulfate (Terbutaline 1 Mg/Ml Vial) 0.25 mg SUBQ .ONCE PRN PRN Reason: Tachystole Allergies/Adverse Reactions: Allergies Allergy/AdvReac Type Severity Reaction Status Date / Time No Known Drug Allergies Allergy Verified 07/25/20 13:46 Anes History & Medical History - Anesthetic History Anesthesia Complications: reports: No previous complications - Medical History Cardiovascular: reports: None Pulmonary: reports: None Gastrointestinal: reports: None Urinary: reports: None Musculoskeletal: reports: None Endocrine/Autoimmune: reports: None Blood Disorders: reports: None Skin: reports: None Smoking Status: Former smoker - Surgical History General: reports: Appendectomy Orthopedic: reports: Spine surgery Exam General: Alert, Oriented x3 Dental: WNL Mouth Opening: Greater than 4 Fingerbreadths Mallampati classification: II Thyromental Distance: greater than 6 cm Respiratory: Lungs clear Cardiovascular: Regular rate Plan Anesthesia Type: Epidural Consent for Procedure(s) Verified and Reviewed: Yes Code Status: Attempt Resuscitation ASA classification: 2-Mild systemic disease Is this case an emergency?: No
--- NOTE | 2022-11-30 03:09 | HISTORY & PHYSICAL EXAMINATION ---
Admit History - Visit Reason Visit Reason: Contractions - : 4 Parity: 2 Premature: 0 Ectopic: 0 : 1 Care: positive: [facility] Risk/History: positive: None Complications This : positive: None Smoking Status: Never smoker - Mother's Labs Mother's Blood Type: positive: AB Mother's RH: positive: Positive GBS: positive: Group B Step Negative Meds/Allgy - Allergies Allergies/Adverse Reactions: Allergies Allergy/AdvReac Type Severity Reaction Status Date / Time No Known Drug Allergies Allergy Verified 07/25/20 13:46 Review of Systems - Constitutional Constitutional: denies: Fatigue, Fever, Chills, Malaise - Eyes Eyes: denies: Blurred vision, Spots in vision, Dipolpia - Cardiovascular Cariovascular: denies: Irregular heart rate, Palpitations, Chest pain, Edema - Respiratory Respiratory: denies: Cough, Wheezing, SOB at rest - Gastrointestinal Gastrointestinal: denies: Constipation, Diarrhea, Nausea, Vomiting - Integumentary Integumentary: denies: Rash, Pruritis - Neurological Neurological: denies: Headache, Dizziness - Psychiatric Psychiatric: denies: Depression, Anxiety - Hematologic/Lymphatic Hematologic/Lymphatic: denies: Anemia Physical - Abdominal Exam Vital Signs: Temp Pulse Resp BP Pulse Ox O2 Flow Rate 36.8 C 101 H 20 132/84 H 11/29/22 23:59 11/29/22 23:59 11/29/22 23:59 11/29/22 23:59 Contraction Frequency (min/apart): 2-3 Contraction Intensity: positive: Strong Uterine Resting Tone: positive: Soft - Monitoring Heart Rate Baseline: 150 Strip Review: positive: Category I - Presentation Presentation: positive: Vertex - Vaginal Exam Membranes: positive: Membranes intact Dilation (in cm): 6 Effacement (%): 100 Station: positive: -1 Cervical Position: positive: Midposition - Speculum Exam Speculum Exam Performed: positive: No Plan for Labor - Plan For Labor I expect patient to be DC'd or transferred within 96 hours.: Yes Plan for Labor: HPI: This 27yo @ 39.4wks gestation by 11.3wks gestation presented to [facility] with c/o contractions. She denies vaginal bleeding or leakage of fluid. She reports +FM. Upon arrival her cervix was 5/90/-1, posterior and vertex with intact membranes. She requested an epidural for pain management as soon as possible. FHR baseline 150s, moderate variability, + accels, no decels. Contractions palpate strong every 2-4 minutes with soft resting tone. She has been a patient of [facility] for the duration of her which has remained complicated only by intermittent SOB with tachycardia which was evaluated closely by echocardiogram which was WNL. Dating criteria: LMP: 03/04/2022 REGIS by LMP: 12/03/2022 Initial U/S @ 11.3wks gestation NOT c/w LMP dating Serial exams - agree automation qa tester Hx: Term NSVB x 2. SAB x1. Last pap 10/2019 WNL, No hx of abnormals. Medical Hx: Asthma -mild seasonal; ruptured ovarian cyst -2015 Surgical Hx: appendectomy 2007 Family Hx: Heart disease - GF; HTN- GM; breast cancer - GM Meds: PNV, FeSO4 Allergies: None known Social: , lives with Car. Works as an RN at [employer]. No tobacco, ETOH or recreational drug use. Caffeine intake -minimal. course: AB Positive; antibody negative Rubella immune; varicella immune Genetic screening - declined FAS WNL. Anterior placenta, w/o previa. Size c/w dating. 3VC. Glucola 122 GBS negative Tdap -third trimester Physical exam: normocephalic, atraumatic Heart RRR w/o M/G/R Lungs CTAB Abdomen gravid, soft, nontender FHR baseline 150s, moderate variability, + accels, no decels Contractions palpate strong every 2-4 minutes with soft resting tone SVE 6/100/-1, midposition, soft. Vertex Intact membranes Bilateral LE's trace edema Assessment: 27yo @ 39.4wks gestation by 11.3wk U/S Active labor FHR Category I GBS neg Plan: Admit for expectant management. Epidural per maternal request. Continuous monitoring. Encouraged rotation in bed on peanut ball. Anticipate .
[2022-11-30] MEDS ORDERED: HYDROCORTISONE 1% CREAM 28 GM TUBE PR PRN (08:09)
[2022-11-30] MEDS ORDERED: WITCH HAZEL/GLYCERIN 1 PAD TOP PRN (08:09)
--- NOTE | 2022-11-30 08:16 | DELIVERY NOTE ---
Delivery Note - Labor Labor: positive: Spontaneous - Delivery Method Delivery Method: positive: Spontaneous vaginal delivery - Presentation Presentation: positive: Vertex - Nuchal Cord Nuchal Cord: positive: None - Amniotic Fluid Description Amniotic Fluid Description: positive: Clear - Episiotomy Type Episiotomy Type: positive: None - Laceration Laceration: positive: None - Delivery Outcome Delivery Outcome: positive: Livebirth - [place]: positive: Placed in direct skin contact with mother, Stimulated, Warmed, [place] used [place] sex: positive: Female - Cord Cord: positive: 3 vessels - Placenta Placenta: positive: Intact, Spontaneous - Estimated Blood Loss Estimated Blood Loss (in cc): 250 - Post Delivery Events Post Delivery Events: positive: No post delivery events - Delivery Comments (Free Text/Narrative) Delivery Comments (Free Text/Narrative): Labor: This is a 27yo @ 39.4wks gestation by 11wk U/S presented on 11/30/2022 with c/o contractions. Cervix was 5/90/-1 and vertex with intact membranes. Epidural was placed per maternal request. FHR baseline 150 and demonstrated a Category I pattern throughout labor. Normal labor course. SROM occurred at 0345 and was noted to be a moderate amount of clear fluid. Pt progressed to c/c/0 with onset of active pushing at 0733. : Normal SVB of viable female on 11/30/2022. No nuchal cord. The was placed on maternal abdomen, stimulated, dried, and placed skin to skin. Apgars were 9/9 at 1 and 5 minutes respectively. Pitocin administered via IV for hemostasis. The umbilical cord was allowed to stop pulsating at which time it was doubly clamped by CNM and cut by FOB. Cord blood was obtained. Fundal massage and gentle cord traction applied for active management of the third stage. Placenta delivered spontaneously and intact at 0753. EBL 250mL Fourth stage: Uterine fundus firm and there is no excessive bleeding. The perineum, vagina, and cervix were inspected and noted to be intact. initiated. Family bonding well. Both mother and baby were left in stable condition.
[2022-11-30] MEDS: ACETAMINOPHEN 500 MG TABLET PO SCH ×2 (08:36→17:15)
[2022-11-30] MEDS: IBUPROFEN 800 MG TABLET PO SCH ×3 (08:36→21:27)
[2022-11-30] MEDS: DOCUSATE SODIUM 100 MG CAPSULE PO SCH ×2 (11:23→21:27)
[2022-12-01] MEDS: ACETAMINOPHEN 500 MG TABLET PO SCH (01:40)
[2022-12-01] MEDS: IBUPROFEN 800 MG TABLET PO SCH ×2 (03:45→09:58)
[2022-12-01 09:30] VITALS: BP 102/55
[2022-12-01] MEDS: DOCUSATE SODIUM 100 MG CAPSULE PO SCH (09:56)
--- NOTE | 2022-12-01 11:26 | Discharge Plan ---
Discharge Plan Problem Reviewed?: Yes Disposition: Home, Self Care Condition: Good Diet: Regular Shower Restrictions: No Driving Restrictions: No Weight Bearing: Full Weight Instruction Topics: Vaginal After No Smoking: If you smoke, Please STOP! Call for help. Follow-up with: Kelly Parada CNM, ARNP [Provider Admit Priv/Credential] - 1 Week (FridayDecember 06 @ 11:45am - phone visit with Kelly Parada CNM/AVELINO)
--- NOTE | 2022-12-01 11:32 | DISCHARGE SUMMARY ---
Discharge Summary Condition at Discharge: Good Discharge Disposition: 01 Home, Self Care - HOSPITAL COURSE Hospital Course: Date of Admission: 11/30/2022 Date of Discharge: 12/01/2022 Diagnosis on Admission: 1. 27yo @ 39.4wks gestation by 11.3wk U/S 2. Active labor 3. FHR Category I 4. GBS neg Diagnosis on Discharge: 1. 27yo PPD#1 s/p TSVB viable female 2. 3. Normal recovery Brief History: She is a patient of [facility] who presented on 11/30/2022 with c/o contractions. Cervix was 5/90/-1 and vertex with intact membranes. Epidural was placed per maternal request. She progressed spontaneously to deliver a viable female infant on 11/30/2022 @ 1750 over intact perineum. Apgars were 9/9 at 1 and 5 minutes respectively. EBL 250mL. She has been doing well in her course. She is ambulating and tolerating a regular diet. She is urinating without difficulty and her lochia is normal. Her pain is well controlled with oral medications. She is bonding well with her baby and is without difficulty. She will be discharged home today on day #1 with instructions to continue taking her prenata l vitamin while and to continue taking ibuprofen and tylenol over the counter as needed for pain management. She intends to follow up with myself at [facility] in 1 week or sooner if needed. She has been given precautions to call if she has any worsening fevers, chills, abdominal pain, increased vaginal bleeding or foul smelling vaginal lochia. Physical Exam: Normocephalic, atraumatic. Heart RRR w/o M/G/R, lungs CTAB. [place] soft and nontender with fundus firm at U-1. Perineum intact, light lochia rubra. Bilateral LE's trace edema. Mood is good. - ALLERGIES Allergies/Adverse Reactions: Allergies Allergy/AdvReac Type Severity Reaction Status Date / Time No Known Drug Allergies Allergy Verified 07/25/20 13:46 - LABS Result Diagrams: 11/30/22 00:45
--- NOTE | 2022-12-01 14:19 | Labor Flowsheet ---
Labor Flowsheet Datetime Report Generated by CPN: 12/01/2022 14:18 Datetime: 12/01/2022 09:22 VITAL SIGNS NBP Sys/Marianne/Mean (mmHg): 102 : 55 : 65 Pulse: 81 Datetime: 11/30/2022 09:30 Membranes Ruptured Date/Time: 11/30/2022 03:45 Datetime: 11/30/2022 09:19 SpO2 (%): 100 Datetime: 11/30/2022 07:50 Stage of : Recovery Datetime: 11/30/2022 07:49 LaborFlag: Labor Datetime: 11/30/2022 07:47 VAGINAL EXAM Dilatation (cm): 10.0 Effacement (%): 100 Exam by: Karma CNM Datetime: 11/30/2022 07:45 Frequency (min): 2-4m Duration (sec): 60-90s Pattern: Normal: <= 5 Contractions in 10 Minutes Contraction Comments: pushing ASSESSMENT A Monitor Mode: External US FHR Baseline Rate : 140 FHR Baseline Changes: No Baseline Change Variability: Moderate 6-25 bpm Decelerations: Early Category: Category I Pushing Position: Pushing with Contractions; Pushing Lithotomy Pushing Progress: Descent with Pushing Datetime: 11/30/2022 07:36 Cervix, Consistency: Soft Cervix, Position: Anterior Datetime: 11/30/2022 07:35 STAGE 2 Pushing: Coached on Pushing Datetime: 11/30/2022 07:32 Notification Reason: Labor Status Datetime: 11/30/2022 07:31 COMMUNICATION Communication: RN at Bedside; Provider at Bedside Communication Comments: Kelly Karma CNM at bedside Datetime: 11/30/2022 07:30 UTERINE ACTIVITY Monitor Mode: External Accelerations: 10X10 Pain Coping: Sleeping Datetime: 11/30/2022 07:15 Quality: Moderate Resting Tone (Palpate): Relaxed Datetime: 11/30/2022 06:46 Station: 1 Patient Position/Activity: Left Tilt Datetime: 11/30/2022 06:44 Respirations: 16 PAIN Pain Scale: 0 Datetime: 11/30/2022 06:10 Anesthesia Level Check: T10- Umbilicus Datetime: 11/30/2022 06:04 I/O Interventions: Straight Cath (ml) @ 100 Datetime: 11/30/2022 05:45 PATIENT CARE IV/Blood Work: New IV Bag Hung; IV Bag Number @ 2/LR 1000ml Datetime: 11/30/2022 04:38 Patient Care Comments: peanut ball Datetime: 11/30/2022 04:34 Anesthesia Comments: comfortable (0/10 px) Datetime: 11/30/2022 04:25 Temperature (C): 37.2 Provider Reviewed Strip: Yes Provider Notified (Name): CNM Karma Datetime: 11/30/2022 03:45 Membranes Rupture Method: Spontaneous Amniotic Fluid Color: Clear Nitrazine: Positive MEDICATIONS Antiemetics/Antacids: Zofran (mg) @ 4 Datetime: 11/30/2022 02:53 Epidural Procedure: Loading Dose Datetime: 11/30/2022 02:46 ANESTHESIA Epidural Positioning: Sitting
== END 2022-12-01 13:05 | disposition home or self-care (01) | DRG 807 ==
LOC: WFO 23:45 → FBP 23:48 → WFO 11-30 00:19 → FBP 11-30 00:20
PROVIDERS: ADMIT Nurse Practitioner Obstetrics & Gynecology; ATTEND Nurse Practitioner Obstetrics & Gynecology
PROC: 10E0XZZ Delivery of Products of Conception, External Approach (ICD-10-PCS; principal; 2022-11-30)
DX: O80 Encounter for full-term uncomplicated delivery (principal); Z37.0 Single live birth; Z3A.39 39 weeks gestation of pregnancy; Z87.891 Personal history of nicotine dependence
CPT/HCPCS: 85025; 86850; 86900; 86901; 99215; A9270; J7120

== ENCOUNTER 2024-06-18 14:36 | Outpatient (CLI) | payer OTHER ==
--- NOTE | 2024-06-21 08:12 | Ultrasound Report ---
LIMITED ULTRASOUND OF LEFT BREAST: 06/18/2024 CLINICAL: Palpable bilateral breast lumps. Comparison is made to exams dated: 08/08/2023 ultrasound and 06/18/2024 ultrasound - [facility]. Color flow and real-time ultrasound of the left breast 4 o'clock and 12 o'clock regions were performe d. Newman scale images of the real-time examination were reviewed. There is a 1.6 cm x 1.3 cm x 0.9 cm oval mass with a circumscribed margin in the left breast at 4 o'c lock anterior depth 2 cm from the nipple. This abnormality is not significantly changed. (Previously measured 1.5 cm x 1.4 cm x 1 cm on 08/08/2023.) No mass in the 12:00 region palpable site. IMPRESSION: PROBABLY BENIGN The 1.6 cm circumscribed mass in the left breast likely represents a fibroadenoma and is probably katty ign. A follow-up ultrasound in 6 months is recommended to demonstrate stability. This exam was interpreted at Station ID: [id number]. Electronically Signed By: Jose Pickett M.D. slc/:06/18/2024 15:38:04 Ultrasound BI-RADS: 3 Probably benign BI-RADS CATEGORY: (3) - 3 Ultrasound [id number] 6 month follow-up LATERALITY: (B)
--- NOTE | 2024-06-21 08:12 | Ultrasound Report ---
LIMITED ULTRASOUND OF RIGHT BREAST: 06/18/2024 CLINICAL: Palpable bilateral breast lumps. Comparison is made to exams dated: 08/08/2023 ultrasound and 06/18/2024 ultrasound - [facility]. Color flow and real-time ultrasound of the right breast 1 o'clock region were performed. Newman scale images of the real-time examination were reviewed. There is a 1.4 cm x 1.2 cm x 0.7 cm oval mass with a circumscribed margin in the right breast at 1 o' clock anterior depth 4 cm from the nipple. This oval mass is hypoechoic with a well-defined boundary . This correlates as palpated. Color flow imaging demonstrates that there is no vascularity present . There also is a 1.2 cm x 0.8 cm x 0.3 cm oval mass with a circumscribed margin in the right breast at 1 o'clock middle depth 4 cm from the nipple. This oval mass is hypoechoic with a well-defined bound nahed. This correlates as palpated. Color flow imaging demonstrates that there is no vascularity pres ent. IMPRESSION: PROBABLY BENIGN The 1.4 cm circumscribed mass in the right breast at 1 o'clock anterior depth is probably benign. The 1.2 cm circumscribed mass in the right breast at 1 o'clock middle depth is probably benign. 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 A follow-up ultrasound in 6 months is recommended to demonstrate stability. This exam was interpreted at Station ID: [id number]. Electronically Signed By: Jose Pickett M.D. slc/:06/18/2024 15:31:08 Ultrasound BI-RADS: 3 Probably benign BI-RADS CATEGORY: (3) - 3 Ultrasound [id number] 6 month follow-up LATERALITY: (B)
== END 2024-06-18 14:37 | disposition home or self-care (01) ==
LOC: DI 14:36
PROVIDERS: ATTEND Nurse Practitioner Family
DX: N63.23 Unspecified lump in the left breast, lower outer quadrant (principal); N63.12 Unspecified lump in the right breast, upper inner quadrant